=== PATIENT | male | born 1995 | race Caucasian/White ===

== ENCOUNTER 2019-05-30 01:46 | Emergency (ER) | payer OTHER, SELFPAY ==
[~2019-05-30] VITALS: Ht 175.3 cm; Wt 77.3 kg
[2019-05-30] MEDS ORDERED: D5W/0.9% SODIUM CHLORIDE 1,000 ML IV ONE (02:30)
[2019-05-30 03:41] LABS: BLOOD UREA NITROGEN 13 MG/DL (7-18); CALCIUM LEVEL 8.6 MG/DL (8.5-10.1); CARBON DIOXIDE LEVEL 27 MEQ/L (21-32); CHLORIDE LEVEL 108 MEQ/L (98-107); CREATININE FOR GFR 0.98 MG/DL (0.70-1.30); ETHYL ALCOHOL (ETHANOL) 0.169 % (0.000-0.010); GLOMERULAR FILTRATION RATE > 60.0 (>60); GLUCOSE, FASTING 97 MG/DL (70-100); POTASSIUM SERUM 4.4 MEQ/L (3.5-5.1); SODIUM LEVEL 143 MEQ/L (136-145)
[2019-05-30 04:00] VITALS: BP 124/69
== END 2019-05-30 04:41 | disposition home or self-care (01) ==
LOC: M ED 01:46
DX: F10.120 Alcohol abuse with intoxication, uncomplicated (principal); Z88.0 Allergy status to penicillin
CPT/HCPCS: 80048; 96360; 99284; G0480